=== PATIENT | male | born 1960 | race Hispanic/Latino ===

== ENCOUNTER 2023-11-10 15:00 | Observation (INO) | payer MEDICARE, OTHER ==
[~2023-11-10] VITALS: Ht 167.6 cm; Wt 76.2 kg
[2023-11-10 15:00] VITALS: BP 126/68; PULSE 104; RESP 18; TEMP 98.3; O2SAT 98
--- NOTE | 2023-11-10 15:00 | NUR ---
ARRIVAL PATIENT ARRIVED TO ED3 AMBULATORY WITH FAMILY, C/O ABDOMEN PAIN SINCE LAST NIGHT, HAS BEEN TAKING ACID REFLUX MEDICATIONS WITH MINIMAL RELIEF, FAMILY DECIDED TO BRING PATIENT TO THE ED FOR EVAL, VITAL SIGNS TAKEN AND DOCTOR NOTIFIED OF PATIENT'S ARRIVAL.
[2023-11-10] MEDS ORDERED: MYLANTA ONE (15:39)
[2023-11-10] MEDS ORDERED: ZOFRAN ODT ONE (15:39)
[2023-11-10] MEDS ORDERED: LIDOCAINE HCL VISCOUS ONE (15:39)
[2023-11-10] MEDS: LIDOCAINE HCL VISCOUS MM STA (15:46)
[2023-11-10] MEDS: MYLANTA PO STA (15:46)
[2023-11-10] MEDS: ZOFRAN ODT SL STA (15:46)
[2023-11-10 16:10] LABS: BASOPHIL % 0.2 % (0.2-1.2); EOSINOPHIL # 0.1 10^3/uL (0.0-0.2); EOSINOPHIL % 0.6 % (0.0-5.0); HEMATOCRIT(ML) 49.8 % (37.0-53.0); HEMOGLOBIN 16.4 g/dL (13.9-16.3); LYMPHOCYTES # 0.71 10^3/uL1 (1.0-4.8); LYMPHOCYTES % 7.5 % (24.0-44.0); MEAN CORP HGB 29.9 pg (26-34); MEAN CORP HGB CONCENTRATION 32.9 g/dL (33-36.5); MEAN CORP VOLUME 90.9 fL (78-100); MONOCYTES # 0.2 10^3/uL (0.3-0.8); MONOCYTES % 2.5 % (5.0-12.0); NEUTROPHIL # 8.4 10^3/uL (1.8-7.7); NEUTROPHILS % 89.1 % (41.0-85.0); PLATELET COUNT 227 10^3/uL (150-400); RED BLOOD CELL 5.48 10^6/uL (4.50-5.90); RED CELL DISTRIBUTION WIDTH 13.1 % (11.5-14.5); WHITE BLOOD CELL 9.5 10^3/uL (4.5-11.0)
[2023-11-10 16:11] LABS: +ADD MANUAL DIFF(NO CHRG) NO
[2023-11-10 16:22] VITALS: BP 124/64; PULSE 100; RESP 18; TEMP 98.3; O2SAT 98
[2023-11-10 16:26] LABS: BILIRUBIN,URINE 1+ (NEGATIVE); LEUKOCYTE ESTERASE ,URINE NEGATIVE (NEGATIVE); NITRATE,URINE NEGATIVE (NEGATIVE); PH,URINE 5.5 (4.5-8.0)
[2023-11-10 16:28] LABS: ALBUMIN(ML) 4.1 g/dL (3.4-5.0); ALBUMIN/GLOBULIN RATIO 1.138; ANION GAP 14.4; BUN/CREATININE RATIO 20.4 (10.0-20.0); CALCIUM 9.1 mg/dL (8.4-10.5); CARBON DIOXIDE 26.9 mmol/L (20.0-32); CREATININE SERUM 0.98 mg/dL (0.59-1.40); EST GFR, NON-AA 76.8 (>/=60); POTASSIUM 4.3 mmol/L (3.6-5.2)
[2023-11-10 16:28] LABS: APPEARANCE,URINE CLEAR; UA COLOR YELLOW
[2023-11-10 16:45] LABS: YEAST,URINE FEW (NONE SEEN)
[2023-11-10 16:50] VITALS: BP 121/64; PULSE 100; RESP 18; TEMP 98.3; O2SAT 98
[2023-11-10 17:40] VITALS: BP 126/62; PULSE 92; RESP 18; TEMP 98.3; O2SAT 98
--- NOTE | 2023-11-10 17:43 | NUR ---
MARTIN MORRIS ON THE PHONE WITH DOCTOR SALAZAR AT THIS TIME
--- NOTE | 2023-11-10 18:05 | NUR ---
MARTIN ROBBINS HERE TO SEE PATIENT.
--- NOTE | 2023-11-10 18:46 | NUR ---
MARTIN SALAZAR DISCUSSING PT OPTIONS FOR POC
[2023-11-10 18:47] VITALS: BP 112/62; PULSE 99; RESP 18; TEMP 98.3; O2SAT 98
[2023-11-10] MEDS ORDERED: NS 100ML 100 ML IV ONE (19:13)
--- NOTE | 2023-11-10 19:13 | NUR ---
ADMIT/ SURGERY DR SALAZAR SCHEDULE SURGERY FOR 0800 KARON DINESH WITH INTRAOP CHOLANGIOGRAM, SALEEM KNIGHT HS NOTIFIED.
[2023-11-10] MEDS: ZOSYN 3.375 GM 3.375 GM in NS 100ML 100 ML IV STA (19:16)
[2023-11-10 20:00] VITALS: BP 107/60; PULSE 105; RESP 18; TEMP 98.3; O2SAT 98
[2023-11-10] MEDS ORDERED: MORPHINE SULFATE IV PRN (20:00)
[2023-11-10] MEDS ORDERED: DEXTROSE 50%-WATER SYRINGE IV PRN (20:00)
[2023-11-10] MEDS ORDERED: VENTOLIN IH PRN (20:00)
--- NOTE | 2023-11-10 22:31 | NUR ---
Patient arrived to floor at 1999. Surgical shower taken upon admit. Admit and surgical shower instruction done/given via Voice business continuity consultant. Patient alert/oriented. No C/O verbalized. Able to use call light, available in reach
[2023-11-10] MEDS: PROTONIX PO SCH (22:56)
[2023-11-10] MEDS: NS 1000ML 1,000 ML IV ONE (22:57)
[2023-11-11] VITALS (12 sets, daily range): BP systolic 112–136; BP diastolic 61–84; PULSE 75–91; RESP 14–19; TEMP 97.1–99.2; O2SAT 92–99
[2023-11-11] MEDS ORDERED: NS 100ML 100 ML IV ONE ×3 (00:02→09:32)
[2023-11-11] MEDS: NS 1000ML 1,000 ML IV SCH (00:15)
[2023-11-11] MEDS: ZOSYN 3.375 GM 3.375 GM in NS 100ML 100 ML IV SCH ×2 (00:16→11:25)
[2023-11-11] MEDS ORDERED: LACTATED RINGERS 1,000 ML ONE (07:05)
[2023-11-11] MEDS ORDERED: BRIDION IV ONE (07:05)
[2023-11-11] MEDS ORDERED: DECADRON ONE (07:05)
[2023-11-11] MEDS ORDERED: QUELICIN ONE (07:06)
[2023-11-11] MEDS ORDERED: DIPRIVAN IV ONE (07:06)
[2023-11-11] MEDS ORDERED: ZEMURON IV ONE (07:06)
[2023-11-11] MEDS ORDERED: VERSED ONE (07:06)
[2023-11-11] MEDS ORDERED: SUBLIMAZE 100MCG/2ML ONE (07:06)
[2023-11-11] MEDS ORDERED: ZOFRAN ONE (07:06)
[2023-11-11] MEDS ORDERED: XYLOCAINE ONE (07:06)
[2023-11-11] MEDS ORDERED: DILAUDID ONE (07:12)
[2023-11-11] MEDS ORDERED: SENSORCAINE-MPF 0.25% VIAL ONE (07:18)
[2023-11-11] MEDS ORDERED: SODIUM CHLORIDE IRR BOTTLE IR ONE (07:18)
[2023-11-11] MEDS ORDERED: EXPAREL 266 MG/20 ML VIAL IJ ONE (07:19)
[2023-11-11] MEDS ORDERED: ISOTON GENTAMICIN 80 MG/100 ML 100 ML IV ONE (07:19)
--- NOTE | 2023-11-11 07:30 | NUR ---
OR PT TRANSFERRED TO OR AT THIS TIME.
[2023-11-11 07:58] LABS: BASOPHIL % 0.3 % (0.2-1.2); EOSINOPHIL # 0.1 10^3/uL (0.0-0.2); EOSINOPHIL % 0.7 % (0.0-5.0); HEMATOCRIT(ML) 41.6 % (37.0-53.0); HEMOGLOBIN 13.8 g/dL (13.9-16.3); LYMPHOCYTES # 0.84 10^3/uL1 (1.0-4.8); LYMPHOCYTES % 9.3 % (24.0-44.0); MEAN CORP HGB 29.9 pg (26-34); MEAN CORP HGB CONCENTRATION 33.2 g/dL (33-36.5); MEAN CORP VOLUME 90.2 fL (78-100); MONOCYTES # 0.6 10^3/uL (0.3-0.8); MONOCYTES % 6.5 % (5.0-12.0); NEUTROPHIL # 7.5 10^3/uL (1.8-7.7); NEUTROPHILS % 83.1 % (41.0-85.0); PLATELET COUNT 216 10^3/uL (150-400); RED BLOOD CELL 4.61 10^6/uL (4.50-5.90); RED CELL DISTRIBUTION WIDTH 13.1 % (11.5-14.5)
[2023-11-11 07:59] LABS: +ADD MANUAL DIFF(NO CHRG) NO
[2023-11-11] MEDS: HUMALOG SQ SCH (08:00)
[2023-11-11 08:13] LABS: ANION GAP 11.5; CARBON DIOXIDE 25.3 mmol/L (20.0-32); CREATININE SERUM 1.28 mg/dL (0.59-1.40); POTASSIUM 3.8 mmol/L (3.6-5.2)
[2023-11-11 08:14] LABS: BILIRUBIN,DIRECT 2.6 mg/dL (0.0-0.3); BILIRUBIN,INDIRECT 1.9 mg/dL; BUN/CREATININE RATIO 15.62 (10.0-20.0); CALCIUM 7.9 mg/dL (8.4-10.5); EST GFR, NON-AA 56.4 (>/=60)
[2023-11-11] MEDS ORDERED: EPHEDRINE SULFATE ONE (08:29)
[2023-11-11] MEDS ORDERED: VENTOLIN IH PRN (10:00)
--- NOTE | 2023-11-11 12:05 | NUR ---
RETURN FORM OR PT ARRIVED FROM OR. PT LETHARGIC BUT A/OX4. PT DENIES PAIN AT THIS TIME. TELLE APPLIED. SPECIAL VITALS INITIATED. SCD'S APPLIED. REPORT RECEIVED FROM SHERRI KNIGHT. ASSUMED CARE OF PT.
[2023-11-11] MEDS ORDERED: NS 3000ML IRR IR ONE (12:12)
[2023-11-11] MEDS: [UNRECOGNIZED DRUG - OTHER] IV ONE (13:33)
[2023-11-11] MEDS: D5NS IV ONE (13:33)
[2023-11-11] MEDS: MORPHINE SULFATE IV PRN (13:34)
[2023-11-11] MEDS: ZOFRAN IV PRN (13:34)
[2023-11-11] MEDS ORDERED: NORCO 5MG PO PRN (23:00)
[2023-11-12] VITALS: BP 103/56; PULSE 86; RESP 18; TEMP 99.5; O2SAT 93
[2023-11-12 03:53] VITALS: BP 94/58; PULSE 64; RESP 18; TEMP 97.8; O2SAT 90
[2023-11-12 06:10] LABS: HEMATOCRIT(ML) 38.8 % (37.0-53.0); HEMOGLOBIN 12.8 g/dL (13.9-16.3); MEAN CORP HGB 30.4 pg (26-34); MEAN CORP VOLUME 92.2 fL (78-100); RED BLOOD CELL 4.21 10^6/uL (4.50-5.90); RED CELL DISTRIBUTION WIDTH 13.6 % (11.5-14.5); WHITE BLOOD CELL 9.7 10^3/uL (4.5-11.0)
[2023-11-12 06:26] LABS: ALBUMIN(ML) 2.7 g/dL (3.4-5.0); ALBUMIN/GLOBULIN RATIO 0.818; ANION GAP 13.4; BUN/CREATININE RATIO 15.15 (10.0-20.0); CARBON DIOXIDE 24.5 mmol/L (20.0-32); CREATININE SERUM 0.99 mg/dL (0.59-1.40); EST GFR, NON-AA 75.9 (>/=60); POTASSIUM 3.9 mmol/L (3.6-5.2)
[2023-11-12 07:39] VITALS: BP 104/58; PULSE 67; RESP 18; TEMP 98; O2SAT 94
[2023-11-12] MEDS: MYLANTA PO STA (12:22)
--- NOTE | 2023-11-12 12:40 | NUR ---
CM, DC PLANS CM IN TO VISIT WITH PATIENT, FAMILY PRESENT, PER FAMILY PATIENT RESIDES IN [facility], PATIENT IS ABLE TO ANSWER QUESTIONS ALSO, LIVES HOME WITH SPOUSE, INDEPENDENT WITH CARE, PCP IN [place]. DENIES NEED FOR HOME HEALTH, PER FAMILY ON DC PATIENT WILL GO HOME WITH THEM IN [place] AND FAMILY THEN WILL RETURN TO PICK PATIENT UP AND GO HOME WITH SPOUSE. CM WILL FOLLOW FOR DC NEEDS.
[2023-11-12 16:22] VITALS: BP 104/58; PULSE 67; RESP 18; TEMP 98; O2SAT 94
--- NOTE | 2023-11-12 16:25 | NUR ---
Discharge IV dc'd with no pain and no s/s of infiltration. Tip of IV cath intact. DC teaching provided. No questions at this time. Pt dc the unit via wc [facility]
== END 2023-11-12 13:15 | disposition home or self-care (01) ==
LOC: ER 15:00 → INTOOBSV 19:08 → OBS 19:08
PROVIDERS: ADMIT Internal Medicine; ATTEND Internal Medicine
DX: K80.00 Calculus of gallbladder with acute cholecystitis without obstruction (principal); I10 Essential (primary) hypertension; E78.00 Pure hypercholesterolemia, unspecified; E11.9 Type 2 diabetes mellitus without complications; R10.11 Right upper quadrant pain; Z79.899 Other long term (current) drug therapy; Z98.890 Other specified postprocedural states; Z79.4 Long term (current) use of insulin
CPT/HCPCS: 96365; 99285; 87086; 76705; 80053 ×2; 85025 ×2; 82948 ×3; 36415 ×3; 81001; 82150; 87186 ×2; 83690 ×2; 87077; 47563; 96366; 96375; 74300; 80048; 80076; 86900; 85027; G0378 ×4; J7030 ×2; J3490 ×5; J2543 ×2; C9290; J1580; J7120; J1100; A4217; J1170; J2704; J1815 ×2; J2001; J2405; J2250; J3010; J0330; S5012; Q9965; 88304